=== PATIENT | female | born 1990 | race Caucasian/White ===

== ENCOUNTER 2017-02-24 23:47 | Emergency (ER) | payer BC ==
[2017-02-24 23:57] VITALS: BP 103/69
[2017-02-25] MEDS ORDERED: Metoclopramide 10 MG/2 ML SDV IVPUSH ONE (00:07)
[2017-02-25] MEDS ORDERED: Sodium Chloride 0.9% 10 ML Syringe FLUSH PRN (00:07)
[2017-02-25] MEDS ORDERED: Sodium Chloride 0.9% 2,000 ML IV STA (00:07)
--- NOTE | 2017-02-25 01:22 | EDM.PDOC ---
ED HPI GENERAL MEDICAL PROBLEM - General Chief Complaint: Gastrointestinal Problem Stated Complaint: DEHYDRATED/VOMITING/DIARRHEA Time Seen by Provider: 02/25/17 00:00 Source of Information: Reports: Patient History Limitations: Reports: No Limitations - History of Present Illness INITIAL COMMENTS - FREE TEXT/NARRATIVE: The patient presents with nausea, vomiting and some abdominal cramps. The patient is AB1 at 16 weeks gestation. Her last OB visit was 02/17/17 and everything was fine. A few days ago she started having nausea and vomiting. She has some abdominal cramps now after it. She denies diarrhea or dysuria. She has a hard time keeping anything down including fluids. She has no discharge or bleeding. Onset: Gradual Duration: Day(s): Location: Reports: Abdomen Quality: Reports: Other (cramping) Severity: Mild Improves with: Reports: None Worsens with: Reports: None Associated Symptoms: Reports: Nausea/Vomiting. Denies: Chest Pain, Cough, Fever /Chills, Shortness of Breath Lower Abdomen Pain Score (Numeric/FACES): 7 - Related Data Allergies Allergy/AdvReac Type Severity Reaction Status Date / Time clindamycin Allergy Syncope Verified 02/24/17 23:53 propoxyphene napsylate Allergy Syncope Verified 02/24/17 23:53 [From Darvocet-N] Home Meds: Home Meds Pnv51/Iron Fum/Fa/Om-3/Dha/Epa [ Multi + Dha Softgel] 1 cap PO DAILY 06/09 [History] Ibuprofen [Motrin] 600 mg PO Q4H PRN #30 tablet 12/14/15 [Rx] Peggy Bishop [Tucks] 1 pad TOP ASDIRECTED PRN #30 pad 12/14/15 [Rx] Past Medical History HEENT History: Reports: None Gastrointestinal History: Reports: Hemorrhoids Other Gastrointestinal History: stomach problems as a teenager 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/BYN History: Neurological History: Reports: Migraines Other Neuro History: Son born with cerbral palsy and had a stroke at dt trauma according to pt Psychiatric History: Reports: Anxiety, Depression Hematologic History: Reports: Anemia Other Hematologic History: anemia in childhood that reoccurs during Dermatologic History: Reports: Eczema Other Dermatologic History: Acne - Past Surgical History HEENT Surgical History: Reports: Eye Surgery GI Surgical History: Reports: Appendectomy Neurological Surgical History: Reports: None Social & Family History - Family History Family Medical History: Noncontributory - Tobacco Use Smoking Status *Q: Never Smoker Years of Tobacco use: 2 Used Tobacco, but Quit: Yes Month Tobacco Last Used: UNK Second Hand Smoke Exposure: No - Caffeine Use Caffeine Use: Reports: Tea - Alcohol Use Days Per Week of Alcohol Use: 0 - Recreational Drug Use Recreational Drug Use: No Drug Use in Last 12 Months: Yes Recreational Drug Type: Reports: Marijuana/Hashish (denies) Recreational Drug Use Frequency: Monthly Recreational Drug Last Use: 2 weeks ago ED ROS GENERAL - Review of Systems Review Of Systems: See Below Constitutional: Reports: No Symptoms HEENT: Reports: No Symptoms Respiratory: Reports: No Symptoms Cardiovascular: Reports: No Symptoms Endocrine: Reports: No Symptoms GI/Abdominal: Reports: Abdominal Pain, Nausea, Vomiting. Denies: Diarrhea : Reports: No Symptoms Musculoskeletal: Reports: No Symptoms ED EXAM, GI/ABD - Physical Exam Exam: See Below Exam Limited By: No Limitations General Appearance: Alert, No Apparent Distress Ears: Normal External Exam Nose: Normal Inspection Head: Atraumatic, Normocephalic Neck: Normal Inspection Respiratory/Chest: No Respiratory Distress, Lungs Clear, Normal Breath Sounds Cardiovascular: Regular Rate, Rhythm, No Edema, No Murmur GI/Abdominal: Soft, Non-Tender, No Organomegaly, Other (Gravid uterus above the pubic symphosis but below the umbilicus) Course - Vital Signs Last Recorded V/S: Last Vital Signs Temp 97.8 F 02/24/17 23:53 Pulse 98 02/24/17 23:53 Resp 14 02/24/17 23:53 BP 103/69 02/24/17 23:53 Pulse Ox 99 02/24/17 23:53 - Orders/Labs/Meds Orders: Active Orders 24 hr Category Date Time Status Peripheral IV Care [RC] . DIRECTED Care 02/25/17 00:07 Active Sodium Chloride 0.9% [Normal Saline] 2,000 ml Med 02/25/17 00:07 Active IV .BOLUS Sodium Chloride 0.9% [Saline Flush] Med 02/25/17 00:07 Active 10 ml FLUSH ASDIRECTED PRN ED Antiemetic Medication Reflex [OM.PC] Stat Oth 02/25/17 00:08 Ordered Peripheral IV Insertion Adult [OM.PC] Stat Oth 02/25/17 00:07 Ordered Medication Orders Sodium Chloride (Normal Saline) 2,000 mls @ 1,000 mls/hr IV .BOLUS STA Stop: 02/25/17 02:06 Last Admin: 02/25/17 00:15 Dose: 1,000 mls/hr Sodium Chloride (Saline Flush) 10 ml FLUSH ASDIRECTED PRN PRN Reason: Keep Vein Open Last Admin: 02/25/17 00:15 Dose: 10 ml Labs: Laboratory Tests 02/25/17 02/25/17 02/25/17 Range/Units 00:14 00:14 00:45 WBC 11.85 H (3.98-10.04) K/mm3 RBC 4.40 (3.98-5.22) M/mm3 Hgb 13.6 (11.2-15.7) gm/L Hct 39.0 (34.1-44.9) % MCV 88.6 (79.4-94.8) fl MCH 30.9 (25.6-32.2) pg MCHC 34.9 (32.2-35.5) g/dl RDW Std Deviation 40.9 (36.4-46.3) fL Plt Count 220 (182-369) K/mm3 MPV 9.9 (9.4-12.3) fl Neut % (Auto) 76.7 H (34.0-71.1) % Lymph % (Auto) 15.4 L (19.3-51.7) % [place] % (Auto) 7.0 (4.7-12.5) % Eos % (Auto) 0.5 L (0.7-5.8) Baso % (Auto) 0.1 (0.1-1.2) % Neut # (Auto) 9.10 H (1.56-6.13) K/mm3 Lymph # (Auto) 1.82 (1.18-3.74) K/mm3 [place] # (Auto) 0.83 H (0.24-0.36) K/mm3 Eos # (Auto) 0.06 (0.04-0.36) K/mm3 Baso # (Auto) 0.01 (0.01-0.08) K/mm3 Sodium 137 (136-145) mEq/L Potassium 3.2 L (3.5-5.1) mEq/L Chloride 103 (98-107) mEq/L Carbon Dioxide 22 (21-32) mEq/L Anion Gap 15.2 H (5-15) BUN 5 L (7-18) mg/dL Creatinine 0.7 (0.55-1.02) mg/dL Est Cr Clr Drug Dosing 102.51 mL/min Estimated GFR (MDRD) > 60 (>60) mL/min BUN/Creatinine Ratio 7.1 L (14-18) Glucose 102 (74-106) mg/dL Calcium 8.7 (8.5-10.1) mg/dL Total Bilirubin 0.6 (0.2-1.0) mg/dL AST 14 L (15-37) U/L ALT 27 (14-59) U/L Alkaline Phosphatase 84 (46-116) U/L Total Protein 7.1 (6.4-8.2) g/dl Albumin 3.1 L (3.4-5.0) g/dl Globulin 4.0 gm/dL Albumin/Globulin Ratio 0.8 L (1-2) Lipase 161 (73-393) U/L Urine Color Yellow (Yellow) Urine Appearance Clear (Clear) Urine pH 8.5 H (5.0-8.0) Ur Specific [place] 1.015 (1.005-1.030) Urine Protein Negative (Negative) Urine Glucose (UA) Negative (Negative) Urine Ketones 2+ H (Negative) Urine Occult Blood Negative (Negative) Urine Nitrite Negative (Negative) Urine Bilirubin Negative (Negative) Urine Urobilinogen 0.2 (0.2-1.0) Ur Leukocyte Esterase Negative (Negative) Urine RBC 0-5 (0-5) /hpf Urine WBC 0-5 (0-5) /hpf Ur Epithelial Cells 0-5 (0-5) /hpf Urine Bacteria Few (FEW) /hpf Urine Mucus Not seen (FEW) /hpf Meds: Medications Generic Name Dose Route Start Last Admin Trade Name Freq PRN Reason Stop Dose Admin Sodium Chloride 2,000 mls @ 1,000 mls/hr 02/25/17 00:07 02/25/17 00:15 Normal Saline IV 02/25/17 02:06 1,000 mls/hr .BOLUS STA Administration Sodium Chloride 10 ml 02/25/17 00:07 02/25/17 00:15 Saline Flush FLUSH 10 ml ASDIRECTED PRN Administration Keep Vein Open Discontinued Medications Generic Name Dose Route Start Last Admin Trade Name Key PRN Reason Stop Dose Admin Metoclopramide HCl 10 mg 02/25/17 00:07 02/25/17 00:15 Reglan IVPUSH 02/25/17 00:08 10 mg ONETIME ONE Administration - Re-Assessments/Exams Free Text/Narrative Re-Assessment/Exam: 02/25/17 01:21 I ordered an IV 2L bolus, raglan 10mg IV and labs. FHTs were 170. 02/25/17 01:22 Her WBC was slightly elevated at 11.85. Her K was a little low at 3.2. Her anion gap was slightly elevated at 15.2. Her UA shows no UTI. 02/25/17 01:29 She got 1L in and she feels much better. I will stop the 2nd liter. I will give her some phenergan tabs for at home. Departure - Departure Time of Disposition: 01:30 Disposition: Home, Self-Care 01 Condition: Good Clinical Impression: Hyperemesis arising during Qualifiers: Weeks of gestation: 16 weeks Qualified Code(s): Z3A.16 - 16 weeks gestation of - Discharge Information Referrals: Cecy Melo [employer] [Primary Care Provider] - Forms: ED Department Discharge Additional Instructions: Take the phenergan as needed for the nausea and vomiting. Follow up with your doctor. Please return if you are worse. Drink plenty of fluids. - My Orders Last 24 Hours: My Active Orders 02/25/17 00:07 Peripheral IV Care [RC] . DIRECTED Sodium Chloride 0.9% [Normal Saline] 2,000 ml IV .BOLUS Sodium Chloride 0.9% [Saline Flush] 10 ml FLUSH ASDIRECTED PRN Peripheral IV Insertion Adult [OM.PC] Stat 02/25/17 00:08 ED Antiemetic Medication Reflex [OM.PC] Stat - Assessment/Plan Last 24 Hours: My Active Orders 02/25/17 00:07 Peripheral IV Care [RC] . DIRECTED Sodium Chloride 0.9% [Normal Saline] 2,000 ml IV .BOLUS Sodium Chloride 0.9% [Saline Flush] 10 ml FLUSH ASDIRECTED PRN Peripheral IV Insertion Adult [OM.PC] Stat 02/25/17 00:08 ED Antiemetic Medication Reflex [OM.PC] Stat
== END 2017-02-25 01:40 | disposition home or self-care (01) ==
LOC: JD.ED 23:47
DX: O21.0 Mild hyperemesis gravidarum (principal); G43.909 Migraine, unspecified, not intractable, without status migrainosus; Z88.1 Allergy status to other antibiotic agents; Z86.2 Personal history of diseases of the blood and blood-forming organs and certain disorders involving the immune mechanism; Z90.49 Acquired absence of other specified parts of digestive tract; Z3A.16 16 weeks gestation of pregnancy
CPT/HCPCS: 36415; 80053; 81001; 83690; 85025; 96361; 96374; 99284; J2765; J7040; J7050

== ENCOUNTER 2017-08-14 06:18 | Inpatient (IN) | payer BC ==
[2017-08-14] MEDS ORDERED: Nalbuphine 20 MG/1 ML Amp IVPUSH PRN (09:19)
[2017-08-14] MEDS ORDERED: Sodium Chloride 0.9% 10 ML Syringe FLUSH PRN (09:19)
[2017-08-14] MEDS ORDERED: Oxytocin/Lactated Ringers 10 UNIT/1,000 ML BAG IV SCH ×2 (09:30)
[2017-08-14] MEDS: Lactated Ringers 1,000 ML IV SCH ×2 (10:36→11:47)
[2017-08-14] MEDS ORDERED: Ondansetron 4 MG/2 ML SDV IVPUSH PRN (10:51)
[2017-08-14] MEDS ORDERED: diphenhydrAMINE 50 MG/ML SDV IVPUSH PRN (10:51)
[2017-08-14] MEDS ORDERED: fentaNYL 100 MCG/2 ML SDV EPIDUR PRN (10:51)
[2017-08-14] MEDS ORDERED: ePHEDrine 50 MG/ML SDV IVPUSH PRN (10:51)
[2017-08-14] MEDS ORDERED: Bupivacaine/fentaNYL/NS 100 ML Bag EPIDUR SCH (11:00)
[2017-08-14] MEDS ORDERED: Benzocaine/Menthol 20%-0.5% Spray 56 GM Canister TOP PRN (14:29)
[2017-08-14] MEDS ORDERED: Docusate Sodium 100 MG Cap PO PRN (14:29)
[2017-08-14] MEDS ORDERED: Acetaminophen 325 MG Tab PO PRN (14:29)
[2017-08-14] MEDS ORDERED: Ibuprofen 600 MG Tab PO PRN (14:29)
[2017-08-14] MEDS ORDERED: Lanolin 100% Cream 7 GM Tube TOP PRN (14:29)
[2017-08-14] MEDS ORDERED: Witch Hazel Medicated Pads 100/Jar TOP PRN (14:29)
--- NOTE | 2017-08-14 14:36 | HP ---
DATE OF ADMISSION: 08/14/2017 ADMISSION DIAGNOSIS: A 40 and 2/7th weeks intrauterine , induction of labor. HISTORY OF PRESENT ILLNESS: The patient is a 26-year-old, 4, para 2-0-1-2, white female, admitted for elective artificial rupture of membranes, induction of labor for dates. She has a cervix that on last evaluation was noted to be 3 cm, 90% effaced, soft, anterior with a bulging bag of dudley. The procedure, risks, benefits, alternatives of care including waiting for natural onset of labor discussed with the patient. She appears to understand and wishes to proceed. COURSE: The patient is a 4, para 2-0-1-2 with 2 previous deliveries and 1 previous miscarriage. Her first ended on 06/25/2012 at 39 weeks' gestational age after 12 hours of labor with delivery of a 7 pounds 9 ounces male infant via normal spontaneous vaginal delivery at [facility]. Child's name is Josef. Second was a miscarriage on 02/23/2014 at 6 weeks gestational age. Third was delivered on 12/13/2015 at 40 weeks' gestational age after 14 hours of labor. Baby weighed 6 pounds 1 ounce, was female, and was delivered via normal spontaneous vaginal delivery. She delivered in [place]. Child's name is Kati Parisi. The patient had somewhat uncertain last menstrual period. She had menarche at age 14. Not using any control at the time of conception. The was dated by an early ultrasound done at 10 and 0/7th weeks gestational age on 01/14/2017 giving an VIVIANE of 08/12/2017. This was supported by 2 other ultrasounds done on 03/28/2017 and 04/30/2017. The course was relatively unremarkable. She has had some anxiety. She declined genetic screening. Her [place] depression screen score on 05/07/2017 was 5/30. She had some migraine headaches during the course of . Her 1-hour GTT was normal. She does plan to breast-feed. Her first visit was on 02/18/2017 at 15 weeks. She had regular checkups. Weight gain was from approximately 150 pounds to 178.8 pounds for 28 pounds weight gain. Her vital signs were stable throughout course and her fundal height growth was appropriate. LABORATORY DATA: Laboratory testing in shows her blood to be A positive with a negative antibody screen. Hemoglobin is 13.9 and platelets were 231 at first visit. She is rubella immune. The urine culture was negative. Second trimester laboratory testing showed the patient to have a hemoglobin of 12.1 and a platelet count of 195,000. Her 1-hour GTT was 94. Her group B strep screen was negative. ALLERGIES: Clindamycin which causes shortness of breath and Darvocet which causes shortness of breath. CURRENT MEDICATIONS: vitamins 1 daily. PAST MEDICAL HISTORY: 1. Normal spontaneous vaginal delivery x2. 2. Miscarriage x1. 3. Some history of depression, which improves during . PAST SURGICAL HISTORY: 1. Appendectomy. 2. Strabismus surgery. FAMILY HISTORY: The patient has 3 siblings, 1 sister, 1 brother, and one half brother, all alive and well. Mother is alive at age 44 and well, but does have some obesity and did have lap band surgery with resultant weight loss. Father age 48, alive and well. Maternal grandmother alive, living with diabetes and anemia. Maternal grandfather living with diabetes. Paternal grand mother secondary from breast cancer. Paternal grandfather living, but with history of diabetes. One son has cerebral palsy and questionably he had a stroke between 2 and 4 months. SOCIAL HISTORY: The patient is . is Rodney Meyers. She is a homemaker. She has a high school graduation. They live in [place]. She does not use any significant amounts of alcohol, drugs, or tobacco. REVIEW OF SYSTEMS: GENERAL: The patient is doing well. Reports good activity. SKIN: Negative. CARDIOVASCULAR: No chest pain, or exercise intolerance. RESPIRATORY: No infectious symptoms or shortness of breath. BREASTS: Changes associated with -the patient does plan to breast feed. GI: Negative. : Increased fundal height consistent with . MUSCULOSKELETAL: Some minimal edema, occasionally noted in lower extremities. NEUROLOGIC: Negative. PHYSICAL EXAMINATION: VITAL SIGNS: Blood pressure on last evaluation in clinic on 08/12/2017 is 114/72, weight was 179, heart rate was 155. Her pre-gravid reported weight was 140.8. Height is 5 feet 3 inches. Pre-gravid BMI was 26.6. GENERAL: The patient is a well-developed, well-nourished, pleasant female, stated age, in no acute distress. SKIN: Warm, dry, without lesions. LUNGS: Clear with good breath sounds in all lung saldaña. CARDIOVASCULAR: Shows regular rate and rhythm without murmurs. BREASTS: Deferred. Having been found to be normal at first visit and not redone at this time. ABDOMEN: Fundal height is consistent with term at 38 cm. Baby in vertex presentation. : Cervical exam is 3 cm/90% effaced/anterior/very soft/minus 2 station. EXTREMITIES: Show trace edema in bilateral lower extremities. NEUROLOGIC: Grossly within normal limits. ASSESSMENT: 1. Term intrauterine at 40 and 2/7th weeks' gestational age, admitted for induction of labor. 2. Group B strep screen negative. 3. The patient plans to breast feed. 4. The patient is up-to-date regarding her influenza vaccination, Tdap, and she is rubella immune. 5. The patient is okay with epidural in labor. PLAN: 1. Anticipate normal spontaneous vaginal delivery. 2. Artificial rupture of membranes induction with Pitocin augmentation as needed. 3. Epidural p.r.n. 4. Support decision. MMODAL /[id number]
--- NOTE | 2017-08-15 08:35 | PCM48HPAN ---
Post Anesthesia Note - EVALUATION WITHIN 48HRS OF ANESTHETIC Vital Signs in Normal Range: Yes Patient Participated in Evaluation: Yes Respiratory Function Stable: Yes Airway Patent: Yes Cardiovascular Function Stable: Yes Hydration Status Stable: Yes Pain Control Satisfactory: Yes Nausea and Vomiting Control Satisfactory: Yes Mental Status Recovered: Yes - COMMENTS/OBSERVATIONS Free Text/Narrative:: Any has been up walking around. No weakness/numbness/tingling noted. No headache. Does have some back soreness at insertion site. Instructed to monitor for now, and if it becomes worse, or if new symptoms arise to be sure and call. Any understands the plan. No further questions at this time.
[2017-08-15] MEDS ORDERED: Prenatal Multivitamin with Calcium/Folic Acid/Iron Tab PO SCH (09:00)
[2017-08-15 12:31] VITALS: BP 120/88
--- NOTE | 2017-08-15 13:59 | PCM.DCSUM1 ---
Discharge Summary - Hospital Course Free Text/Narrative:: Any is 26-year-old multigravida white female was admitted on the morning of because of dates. She is 40-2/7 weeks gestational age. Patient was induced with artificial rupture membranes. She progressed rapidly and delivered a viable, fuller with Apgars of 9 and 9. She is nursing at the present time, has minimal lochia and is voiding well. Epidural used and labor has worn off well. She is desiring discharge home from the hospital. - Discharge Data Discharge Date: 08/15/17 Discharge Disposition: Home, Self-Care 01 Condition: Good - Patient Instructions Diet: Regular Diet as Tolerated (Nursing diet with increased calories and calcium as recommended) Activity: As Tolerated (Course tampons until bleeding resolves) Driving: May Drive Today Showering/Bathing: May Shower (May take a bath) - Discharge Plan Home Medications: Home Meds Pnv51/Iron Fum/Fa/Om-3/Dha/Epa [ Multi + Dha Softgel] 1 cap PO DAILY 06/09 [History] Ibuprofen [IJD: Ibuprofen] 600 mg PO Q4H PRN tablet 08/15/17 [Rx] Referrals: Hany Traore MD [Primary Care Provider] - (Return to clinicDr. Traore2 weeks) - Discharge Summary/Plan Comment DC Time >30 min.: No Discharge Summary/Plan Comment: Discharge instructions: 1. Discharge home 2. Diet, activity and follow-up discussed with patient. Recommend nursing diet with increased calories and calcium. 3. Precautions given concern increased pain, bleeding, temperature, signs/ symptoms of DVT/PE. 4. Medications per home medication was printed, discussed with and given to the patient. 5. Return to clinic-Dr. Traore[facility] in 2 weeks. Diagnosis: Term -delivered Condition: Good - Patient Data Vitals - Most Recent: Last Vital Signs Temp 36.7 C 08/15/17 11:51 Pulse 70 08/15/17 11:51 Resp 18 08/15/17 11:51 BP 120/88 08/15/17 11:51 Pulse Ox 98 08/15/17 11:51 Weight - Most Recent: 81.012 kg I&O - Last 24 hours: Intake & Output 08/14/17 08/15/17 08/15/17 22:59 06:59 14:59 Intake Total 120 120 Balance 120 120 Lab Results - Last 24 hrs: Laboratory Results - last 24 hr 08/15/17 Range/Units 06:32 WBC 11.49 H (3.98-10.04) K/mm3 RBC 3.91 L (3.98-5.22) M/mm3 Hgb 12.0 (11.2-15.7) gm/L Hct 36.5 (34.1-44.9) % MCV 93.4 (79.4-94.8) fl MCH 30.7 (25.6-32.2) pg MCHC 32.9 (32.2-35.5) g/dl RDW Std Deviation 47.5 H (36.4-46.3) fL Plt Count 180 L (182-369) K/mm3 MPV 11.4 (9.4-12.3) fl Med Orders - Current: Current Medications Acetaminophen (Tylenol) 650 mg PO Q4H PRN PRN Reason: mild pain or fever Benzocaine/Menthol (Dermoplast Pain Relief [place]) 0 gm TOP ASDIRECTED PRN PRN Reason: Perineal Comfort Measure Docusate Sodium (Colace) 100 mg PO BID PRN PRN Reason: Constipation Emollient Ointment (Lansinoh Hpa) 0 gm TOP ASDIRECTED PRN PRN Reason: Sore Nipples Ibuprofen (Motrin) 600 mg PO Q4H PRN PRN Reason: Mild pain or fever Prenat Multivit/Deuel/Iron/Folic Ac ( Plus Iron) 1 each PO DAILY [facility] Last Admin: 08/15/17 12:36 Dose: Not Given Peggy Bishop (Tucks) 1 pad TOP ASDIRECTED PRN PRN Reason: Hemorrhoid pain Discontinued Medications Diphenhydramine HCl (Benadryl) 25 mg IVPUSH Q6H PRN PRN Reason: Pruritis Ephedrine Sulfate (Ephedrine Sulfate) 5 mg IVPUSH ASDIRECTED PRN PRN Reason: Hypotension Fentanyl (Sublimaze) 100 mcg EPIDUR Q3H PRN PRN Reason: Pain Last Admin: 08/14/17 11:25 Dose: 100 mcg Fentanyl/Bupivacaine HCl (Fentanyl/Bupivacaine/Ns 2 Mcg-0.125% 100 Ml) 100 ml EPIDUR ASDIRECTED [facility] Last Admin: 08/14/17 11:25 Dose: 100 ml Lactated Ringer's (Ringers, Lactated) 1,000 mls @ 100 mls/hr IV ASDIRECTED GIDEON Last Admin: 08/14/17 11:47 Dose: 100 mls/hr Oxytocin/Lactated Ringer's (Pitocin In Lr 10 Units/1,000 Ml) 10 unit in 1,000 mls @ 12 mls/hr IV TITRATE GIDEON; 2 MUNITS/MIN PRN Reason: Protocol Oxytocin/Lactated Ringer's (Pitocin In Lr 10 Units/1,000 Ml) 10 unit in 1,000 mls @ 500 mls/hr IV .CONTINUOUS GIDEON Last Admin: 08/14/17 12:38 Dose: 500 mls/hr Nalbuphine HCl (Nubain) 10 mg IVPUSH Q2H PRN PRN Reason: Pain (moderate 4-6) Ondansetron HCl (Zofran) 4 mg IVPUSH ONETIME PRN PRN Reason: Nausea/Vomiting Sodium Chloride (Saline Flush) 10 ml FLUSH ASDIRECTED PRN PRN Reason: Keep Vein Open *Q Meaningful Use (DIS) - VTE *Q VTE Criteria *Q: - Stroke *Q Stroke Criteria *Q: - AMI *Q AMI Criteria *Q:
--- NOTE | 2017-08-31 11:24 | PCM.SN ---
- Free Text/Narrative Note: Any 4 now para 2000 white female who was electively induced on 2016. She progressed to complete and delivered a viable, fuller, infant with Apgars of 9 and 9 at 1237 hrs. Pitocin was administered after delivery to facilitate increase in uterine tone and slow bleeding. He was placed mom's abdomen, nose and mouth were bulb suctioned. The cord was clamped 2 and cut. The umbilical cord had 3 vessels. The placenta delivered intact, appeared complete was discarded her desire the patient. Blood loss 100 mL. Condition: Good. Patient plans to breast-feed. BC Trace So notes for details.
== END 2017-08-15 14:45 | disposition home or self-care (01) | DRG 560 ==
LOC: JD.OB 07:19 → OBSVTOIN 12:37 → JD.OB 12:37 → UNDODISIN 08-15 14:45
PROVIDERS: ADMIT Obstetrics & Gynecology; ATTEND Obstetrics & Gynecology
PROC: 10E0XZZ Delivery of Products of Conception, External Approach (ICD-10-PCS; principal; 2017-08-14)
PROC: 10907ZC Drainage of Amniotic Fluid, Therapeutic from Products of Conception, Via Natural or Artificial Opening (ICD-10-PCS; 2017-08-14)
PROC: 00HU33Z Insertion of Infusion Device into Spinal Canal, Percutaneous Approach (ICD-10-PCS; 2017-08-14)
DX: O80 Encounter for full-term uncomplicated delivery (principal); Z3A.40 40 weeks gestation of pregnancy; Z37.0 Single live birth; Z88.1 Allergy status to other antibiotic agents; Z88.5 Allergy status to narcotic agent
CPT/HCPCS: 36415; 51702; 59409; 85025; 85027; J2590; J3010; J7120

== ENCOUNTER 2020-09-15 03:24 | Inpatient (IN) | payer MEDICAID ==
[2020-09-15] MEDS ORDERED: Ondansetron 4 MG/2 ML SDV IVPUSH PRN (04:44)
[2020-09-15] MEDS ORDERED: Nalbuphine 10 MG/1 ML Vial IVPUSH PRN (04:44)
[2020-09-15] MEDS ORDERED: Sodium Chloride 0.9% 10 ML Syringe FLUSH PRN (04:44)
[2020-09-15] MEDS ORDERED: Oxytocin/Lactated Ringers 10 UNIT/1,000 ML BAG IV SCH ×2 (04:45)
[2020-09-15] MEDS ORDERED: ePHEDrine 50 MG/ML SDV IVPUSH PRN (07:11)
[2020-09-15] MEDS ORDERED: diphenhydrAMINE 50 MG/ML SDV IVPUSH PRN (07:11)
[2020-09-15] MEDS ORDERED: fentaNYL 100 MCG/2 ML SDV EPIDUR PRN (07:11)
[2020-09-15] MEDS ORDERED: Bupivacaine/fentaNYL/NS 100 ML Bag EPIDUR PRN (07:11)
[2020-09-15] MEDS: Lactated Ringers 1,000 ML IV SCH ×2 (07:25→08:30)
--- NOTE | 2020-09-15 08:27 | PCM.PREANE ---
Preanesthetic Assessment - Procedure Proposed Procedure: epidural - Anesthesia/Transfusion/Family Hx Anesthesia History: Prior Anesthesia Without Reaction Family History of Anesthesia Reaction: No Transfusion History: No Prior Transfusion(s) - Review of Systems General: Fatigue Pulmonary: No Symptoms Cardiovascular: No Symptoms Gastrointestinal: Abdominal Pain (labor) Neurological: No Symptoms Other: Reports: None - Physical Assessment Vital Signs: Last Vital Signs Temp 36.8 C 09/15/20 03:38 Pulse 98 09/15/20 03:38 Resp 14 09/15/20 03:38 BP 139/95 H 09/15/20 03:38 Pulse Ox 100 09/15/20 03:38 Height: 1.57 m Weight: 89.811 kg ASA Class: 2 Mental Status: Alert & Oriented x3 Airway Class: Mallampati = 2 Dentition: Reports: Normal Dentition Thyro-Mental Finger Breadths: 3 Mouth Opening Finger Breadths: 3 ROM/Head Extension: Full Lungs: Clear to Auscultation, Normal Respiratory Effort Cardiovascular: Regular Rate, Regular Rhythm - Lab Values: Laboratory Last Values WBC 11.62 K/mm3 (3.98-10.04) H 09/15/20 04:55 RBC 4.10 M/mm3 (3.98-5.22) 09/15/20 04:55 Hgb 12.2 gm/dl (11.2-15.7) 09/15/20 04:55 Hct 37.6 % (34.1-44.9) 09/15/20 04:55 MCV 91.7 fl (79.4-94.8) 09/15/20 04:55 MCH 29.8 pg (25.6-32.2) 09/15/20 04:55 MCHC 32.4 g/dl (32.2-35.5) 09/15/20 04:55 RDW Std Deviation 46.9 fL (36.4-46.3) H 09/15/20 04:55 Plt Count 201 K/mm3 (182-369) 09/15/20 04:55 MPV 10.4 fl (9.4-12.3) 09/15/20 04:55 Neut % (Auto) 72.5 % (34.0-71.1) H 09/15/20 04:55 Lymph % (Auto) 19.4 % (19.3-51.7) 09/15/20 04:55 Blair % (Auto) 7.3 % (4.7-12.5) 09/15/20 04:55 Eos % (Auto) 0.3 (0.7-5.8) L 09/15/20 04:55 Baso % (Auto) 0.2 % (0.1-1.2) 09/15/20 04:55 Neut # (Auto) 8.41 K/mm3 (1.56-6.13) H 09/15/20 04:55 Lymph # (Auto) 2.26 K/mm3 (1.18-3.74) 09/15/20 04:55 Blair # (Auto) 0.85 K/mm3 (0.24-0.36) H 09/15/20 04:55 Eos # (Auto) 0.04 K/mm3 (0.04-0.36) 09/15/20 04:55 Baso # (Auto) 0.02 K/mm3 (0.01-0.08) 09/15/20 04:55 SARS-CoV-2 RNA (DAT) Negative (NEGATIVE) 09/15/20 04:45 - Allergies Allergies/Adverse Reactions: Allergies Allergy/AdvReac Type Severity Reaction Status Date / Time clindamycin Allergy Syncope Verified 09/15/20 03:42 propoxyphene napsylate Allergy Syncope Verified 09/15/20 03:42 [From [facility]] - Anesthesia Plan Pre-Op Medication Ordered: None - Acknowledgements Anesthesia Type Planned: Epidural Pt an Appropriate Candidate for the Planned Anesthesia: Yes Alternatives and Risks of Anesthesia Discussed w Pt/Guardian: Yes Pt/Guardian Understands and Agrees with Anesthesia Plan: Yes PreAnesthesia Questionnaire HEENT History: Reports: None Gastrointestinal History: Reports: GERD, Hemorrhoids Other Gastrointestinal History: stomach problems as a teenager SERVICE AGENT History: Reports: , Spontaneous Other OB/BYN History: Neurological History: Reports: Migraines Other Neuro History: Son born with cerbral palsy and had a stroke at dt trauma according to pt Psychiatric History: Reports: Anxiety, Depression, Suicide Attempt Other Psychiatric History: Suicide attempt as a teenager Hematologic History: Reports: Anemia Other Hematologic History: anemia in childhood that reoccurs during Dermatologic History: Reports: Eczema Other Dermatologic History: Acne - Infectious Disease History Infectious Disease History: Reports: Chicken Pox - Past Surgical History HEENT Surgical History: Reports: Eye Surgery GI Surgical History: Reports: Appendectomy Dermatological Surgical History: Reports: None - SUBSTANCE USE Tobacco Use Status *Q: Never Tobacco User Second Hand Smoke Exposure: No Recreational Drug Use History: No - HOME MEDS Home Medications: Home Meds Pnv51/Iron Fum/Fa/Om-3/Dha/Epa [ Multi + Dha Softgel] 1 cap PO DAILY 02/02/15 [History] - CURRENT (IN HOUSE) MEDS Current Meds: Current Medications Diphenhydramine HCl (Benadryl) 25 mg IVPUSH Q6H PRN PRN Reason: pruritis Ephedrine Sulfate (Ephedrine Sulfate) 5 mg IVPUSH ASDIRECTED PRN PRN Reason: Hypotension Fentanyl (Sublimaze) 100 mcg EPIDUR Q3H PRN PRN Reason: Pain Last Admin: 09/15/20 07:59 Dose: 100 mcg Documented by: Fentanyl/Bupivacaine HCl (Fentanyl/Bupivacaine/Ns 2 Mcg-0.125% 100 Ml) 100 ml EPIDUR ASDIRECTED PRN PRN Reason: Pain Last Admin: 09/15/20 07:59 Dose: 100 ml Documented by: Lactated Ringer's (Ringers, Lactated) 1,000 mls @ 100 mls/hr IV ASDIRECTED GIDEON Last Admin: 09/15/20 07:25 Dose: 100 mls/hr Documented by: Oxytocin/Lactated Ringer's (Pitocin In Lr 10 Units/1,000 Ml) 10 unit in 1,000 mls @ 12 mls/hr IV TITRATE GIDEON; Protocol Oxytocin/Lactated Ringer's (Pitocin In Lr 10 Units/1,000 Ml) 10 unit in 1,000 mls @ 500 mls/hr IV .CONTINUOUS GIDEON Nalbuphine HCl (Nubain) 10 mg IVPUSH Q2H PRN PRN Reason: Pain Ondansetron HCl (Zofran) 4 mg IVPUSH Q4H PRN PRN Reason: Nausea/Vomiting Sodium Chloride (Saline Flush) 10 ml FLUSH ASDIRECTED PRN PRN Reason: Keep Vein Open
[2020-09-15] MEDS ORDERED: Ibuprofen 600 MG Tab PO PRN ×2 (11:33→15:09)
--- NOTE | 2020-09-15 12:58 | PCM.SN.2 ---
- Free Text/Narrative Note: Delivery note: Any is a 29-year-old 7 para 3-0-3-3 white female presently at 39-0/7 weeks gestational age with an VIVIANE of 09/23/2020 for early onset of labor. She is approximate 4 to 5 cm upon admission. Ganesh every 3 to 5 minutes. She had been scheduled for induction on 09/16/2020 but came in active labor. Membranes were ruptured with resultant clear amniotic fluid. Patient progressed rapidly to complete cervical dilation by approximately 1100 hrs. on 09/15/2020. She delivered a viable, fuller, female weighing 3000 g (6 pounds - 9.8 ounces) with a length of 20.0 inches and Apgars of 8 and 9 in a direct occiput anterior position over an intact perineum. The baby was placed on mom's abdomen, was dried and nose and mouth were bulb suction. Pitocin was increased to 500 cc/h using routine concentration of Pitocin. This is done to facilitate increase in uterine tone and decrease likelihood of uterine bleeding. Cord blood was obtained. The placenta delivered in a Crain presentation, appeared intact and complete and was discarded per patient desire. The umbilical cord had 3 vessels. Patient had no perineal or vaginal lacerations. Estimated blood loss was 200 cc.
[2020-09-15] MEDS ORDERED: Docusate Sodium 100 MG Cap PO PRN (15:09)
[2020-09-15] MEDS ORDERED: Witch Hazel Medicated Pads 40/Jar TOP PRN (15:09)
[2020-09-15] MEDS ORDERED: Benzocaine/Menthol 20%-0.5% Spray 56 GM Canister TOP PRN (15:09)
[2020-09-15] MEDS ORDERED: Acetaminophen 325 MG Tab PO PRN (15:09)
[2020-09-16 07:53] VITALS: BP 125/90; PULSE 80
[2020-09-16] MEDS ORDERED: Prenatal Multivitamin with Calcium/Folic Acid/Iron Tab PO SCH (09:00)
--- NOTE | 2020-09-16 10:11 | PCM.DCSUM1 ---
Discharge Summary - Hospital Course Free Text/Narrative:: Any is a 29-year-old 7 para 3-0-3-3 white female presently at 39-0/7 weeks gestational age with an VIVIANE of 09/23/2020 for early onset of labor. She is approximate 4 to 5 cm upon admission. Ganesh every 3 to 5 minutes. She had been scheduled for induction on 09/16/2020 but came in active labor. Membranes were ruptured with resultant clear amniotic fluid. Patient progressed rapidly to complete cervical dilation by approximately 1100 hrs. on 09/15/2020. She delivered a viable, fuller, female weighing 3000 g (6 pounds - 9.8 ounces) with a length of 20.0 inches and Apgars of 8 and 9 in a direct occiput anterior position over an intact perineum. The baby was placed on mom's abdomen, was dried and nose and mouth were bulb suction. Pitocin was increased to 500 cc/h using routine concentration of Pitocin. This is done to facilitate increase in uterine tone and decrease likelihood of uterine bleeding. Cord blood was obtained. The placenta delivered in a Crain presentation, appeared intact and complete and was discarded per patient desire. The umbilical cord had 3 vessels. Patient had no perineal or vaginal lacerations. Estimated blood loss was 200 cc. patient is done well. She is nursing without problems, has minimal lochia, is ambulating well and voiding without concerns. She is desiring discharge home. Condition: Good Diagnosis: Stroke: No - Discharge Data Discharge Date: 09/16/20 Discharge Disposition: Home, Self-Care 01 Condition: Good - Referral to Home Health Primary Care Physician: Hany Traore MD - Patient Instructions Diet: Regular Diet as Tolerated (Nursing diet with increased calories and calcium as recommended) Activity: As Tolerated (No intercourse or tampons until bleeding resolves) Driving: May Drive Today Showering/Bathing: May Shower (May take a bath) Notify Provider of: Fever, Increased Pain, Swelling and Redness, Nausea and/or Vomiting - Discharge Plan Home Medications: Home Meds Pnv51/Iron Fum/Fa/Om-3/Dha/Epa [ Multi + Dha Softgel] 1 cap PO DAILY 02/02/15 [History] Acetaminophen [Tylenol] 650 mg PO Q4H PRN tablet 09/16/20 [Rx] Ibuprofen [Motrin] 600 mg PO Q4H PRN tablet 09/16/20 [Rx] Referrals: Hany Traore MD [Primary Care Provider] - (Return to clinic[facility]. [facility] weeks.) - Discharge Summary/Plan Comment DC Time >30 min.: No Discharge Summary/Plan Comment: Discharge instructions: 1. Discharge home 2. Diet, activity and follow-up discussed with patient. Recommend nursing diet with increased calories and calcium. 3. Precautions given concern increased pain, bleeding, temperature, signs/symptoms of DVT/PE. 4. Medications per home medication was printed, discussed with and given to the patient. 5. Return to clinic-Dr. Traore-[facility] [place] in 2 weeks. Diagnosis: Term -delivered Condition: Good - Patient Data Vitals - Most Recent: Last Vital Signs Temp 36.6 C 09/16/20 07:28 Pulse 80 09/16/20 07:28 Resp 16 09/16/20 07:28 BP 125/90 09/16/20 07:28 Pulse Ox 96 09/16/20 07:28 Weight - Most Recent: 89.811 kg I&O - Last 24 hours: Intake & Output 09/15/20 09/16/20 09/16/20 22:59 06:59 14:59 Intake Total 320 Balance 320 Med Orders - Current: Current Medications Acetaminophen (Tylenol) 650 mg PO Q4H PRN PRN Reason: mild pain or fever Benzocaine/Menthol (Dermoplast Pain Relief [place]) 0 gm TOP ASDIRECTED PRN PRN Reason: Perineal Comfort Measure Last Admin: 09/15/20 23:32 Dose: 1 can Documented by: Docusate Sodium (Colace) 100 mg PO BID PRN PRN Reason: Constipation Ibuprofen (Motrin) 600 mg PO Q4H PRN PRN Reason: Mild pain or fever Prenat Multivit/[place]/Iron/Folic Ac ( Plus Iron) 1 each PO DAILY GIDEON Bishop (Tucks) 1 pad TOP ASDIRECTED PRN PRN Reason: Perineal Comfort Measure Last Admin: 09/15/20 23:31 Dose: 1 tub Documented by: Discontinued Medications Diphenhydramine HCl (Benadryl) 25 mg IVPUSH Q6H PRN PRN Reason: pruritis Ephedrine Sulfate (Ephedrine Sulfate) 5 mg IVPUSH ASDIRECTED PRN PRN Reason: Hypotension Fentanyl (Sublimaze) 100 mcg EPIDUR Q3H PRN PRN Reason: Pain Last Admin: 09/15/20 07:59 Dose: 100 mcg Documented by: Fentanyl/Bupivacaine HCl (Fentanyl/Bupivacaine/Ns 2 Mcg-0.125% 100 Ml) 100 ml EPIDUR ASDIRECTED PRN PRN Reason: Pain Last Admin: 09/15/20 07:59 Dose: 100 ml Documented by: Lactated Ringer's (Ringers, Lactated) 1,000 mls @ 100 mls/hr IV ASDIRECTED GIDEON Last Admin: 09/15/20 08:30 Dose: 250 mls/hr Documented by: Oxytocin/Lactated Ringer's (Pitocin In Lr 10 Units/1,000 Ml) 10 unit in 1,000 mls @ 12 mls/hr IV TITRATE GIDEON; Protocol Last Admin: 09/15/20 09:45 Dose: 2 munits/min, 12 mls/hr Documented by: Oxytocin/Lactated Ringer's (Pitocin In Lr 10 Units/1,000 Ml) 10 unit in 1,000 mls @ 500 mls/hr IV .CONTINUOUS GIDEON Ibuprofen (Motrin) 600 mg PO Q4H PRN PRN Reason: Pain Nalbuphine HCl (Nubain) 10 mg IVPUSH Q2H PRN PRN Reason: Pain Ondansetron HCl (Zofran) 4 mg IVPUSH Q4H PRN PRN Reason: Nausea/Vomiting Sodium Chloride (Saline Flush) 10 ml FLUSH ASDIRECTED PRN PRN Reason: Keep Vein Open
--- NOTE | 2020-09-16 10:16 | PCM.SN.2 ---
- Free Text/Narrative Note: Addendum to history and physical dictated for patient's elective induction which was scheduled for 09/16/2020. Any is a multiparous patient who was scheduled for induction on 09/16/2020. History and physical was dictated and dated that date. Patient was admitted on 09/15/2020 in active labor with advanced cervical dilation. At the time of admission patient was claudia every 3 to 5 minutes, moderate intensity, lasting for up to 60 seconds. She was 5 cm dilated, bag of dudley was intact. She underwent AROM augmentation of labor with resultant clear amniotic fluid. Other specifics related to her history and physical are unchanged from the document that was dated 09/16/2020. Please refer to that document. Thank you
--- NOTE | 2020-09-16 10:50 | PCM48HPAN ---
Post Anesthesia Note - EVALUATION WITHIN 48HRS OF ANESTHETIC Vital Signs in Normal Range: Yes Patient Participated in Evaluation: Yes Respiratory Function Stable: Yes Airway Patent: Yes Cardiovascular Function Stable: Yes Hydration Status Stable: Yes Pain Control Satisfactory: Yes Nausea and Vomiting Control Satisfactory: Yes Mental Status Recovered: Yes Vital Signs: Last Vital Signs Temp 97.9 F 09/16/20 07:28 Pulse 80 09/16/20 07:28 Resp 16 09/16/20 07:28 BP 125/90 09/16/20 07:28 Pulse Ox 96 09/16/20 07:28 no complaints.
[2020-09-16] MEDS ORDERED: Bupivacaine 0.25% 10 ML SDV ONE (11:00)
== END 2020-09-16 13:51 | disposition home or self-care (01) | DRG 807 ==
LOC: JD.OBCHECK 03:24 → JD.OB 03:28 → JD.OBCHECK 04:44 → JD.OB 05:18 → OBSVTOIN 11:06 → JD.OB 11:07
PROVIDERS: ADMIT Obstetrics & Gynecology; ATTEND Obstetrics & Gynecology
PROC: 10E0XZZ Delivery of Products of Conception, External Approach (ICD-10-PCS; principal; 2020-09-15)
PROC: 10907ZC Drainage of Amniotic Fluid, Therapeutic from Products of Conception, Via Natural or Artificial Opening (ICD-10-PCS; 2020-09-15)
PROC: 3E0R3BZ Introduction of Anesthetic Agent into Spinal Canal, Percutaneous Approach (ICD-10-PCS; 2020-09-15)
DX: O99.02 Anemia complicating childbirth (principal); Z37.0 Single live birth; D64.9 Anemia, unspecified; O99.62 Diseases of the digestive system complicating childbirth; K21.9 Gastro-esophageal reflux disease without esophagitis; Z90.49 Acquired absence of other specified parts of digestive tract; Z20.822 Contact with and (suspected) exposure to COVID-19; Z3A.39 39 weeks gestation of pregnancy
CPT/HCPCS: 01967; 36415; 51702; 59025; 59409; 85025; 86592; A9270-GY; J2590; J3010; J3490; J7120; U0002

== ENCOUNTER 2022-01-07 15:06 | Emergency (ER) | payer MEDICAID ==
[2022-01-07 15:21] VITALS: BP 115/93; PULSE 94
[2022-01-07] MEDS ORDERED: Amoxicillin 500 MG Cap PO ONE (15:42)
[2022-01-07] MEDS ORDERED: Acetaminophen/HYDROcodone 325-5 MG Tab PO ONE (15:42)
== END 2022-01-07 15:55 | disposition home or self-care (01) ==
LOC: JD.ED 15:06
DX: K08.89 Other specified disorders of teeth and supporting structures (principal); Z90.49 Acquired absence of other specified parts of digestive tract; Z79.899 Other long term (current) drug therapy; Z88.1 Allergy status to other antibiotic agents; Z88.5 Allergy status to narcotic agent
CPT/HCPCS: 99282

== ENCOUNTER 2022-09-05 17:32 | Emergency (ER) | payer MEDICAID ==
[2022-09-05 18:24] VITALS: BP 116/85; PULSE 90
== END 2022-09-05 18:22 | disposition home or self-care (01) ==
LOC: JD.ED 17:32
DX: S13.4XXA Sprain of ligaments of cervical spine, initial encounter (principal); Z88.1 Allergy status to other antibiotic agents; Z88.8 Allergy status to other drugs, medicaments and biological substances; W22.09XA Striking against other stationary object, initial encounter
CPT/HCPCS: 99283